=== PATIENT | female | born 1990 | race Caucasian/White ===

== ENCOUNTER → 2018-07-07 11:07 | Outpatient (CLI) | payer OTHER, SELFPAY ==
--- NOTE | 2018-07-07 11:09 | DI.US.S_ITS ---
PROCEDURE: US PELVIC COMPLETE INDICATIONS: Pelvic pain TECHNIQUE: Real-time scanning was performed of the pelvic organs, with image documentation. Additional endovaginal scanning was necessary due to incomplete visualization of the adnexal and endometrial structures by transabdominal scanning. COMPARISON: [facility], US, PELVIC COMPLETE, 09/11/2017, 15:41. FINDINGS: Transabdominal scanning: Limited scanning through the kidneys shows no hydronephrosis. No pathologic free abdominal or pelvic fluid. Endovaginal scanning: Uterus: Uterus is normal in size at 8.3 x 4.5 x 5 cm. the uterus is deviated to the right. The endometrium measures 7 mm in combined thickness. Ovaries: The right ovary measures 2.5 x 3 x 3.3 cm. The left ovary measures 4.4 x 3 x 2.7 cm and demonstrates a dominant follicle that measures up to 2.2 cm, which is considered to be within physiologic limits. The ovaries have a normal sonographic appearance, with normal appearing follicles seen. 4 or 5 follicles are seen within the right ovary while there are 2 follicles seen within the left ovary No adnexal masses are seen. IMPRESSION: Helical percent within normal limits, without an imaging explanation found for the patient's presenting history of pelvic and lower abdominal pain. This patient does not meet ultrasound criteria for polycystic ovaries. Dictated by: Joao Alvarado M.D. on 07/07/2018 at 11:48 Approved by: Joao Alvarado M.D. on 07/07/2018 at 11:56
== END ==
PROVIDERS: Visit Provider Physician Assistant
DX: R10.2 Pelvic and perineal pain (principal)
CPT/HCPCS: 76830; 76856

== ENCOUNTER → 2018-11-05 15:44 | Outpatient (CLI) | payer OTHER, SELFPAY ==
--- NOTE | 2018-11-05 15:46 | DI.US.S_ITS ---
LIMITED ULTRASOUND OF RIGHT BREAST: 11/05/2018 CLINICAL: Focal right breast pain. Palpable right breast lump. No prior exams were available for comparison. Ultrasound of the right breast upper outer quadrant was performed. No abnormalities were seen sonographically in the right breast. There are no discrete cystic or solid masses present to correspond to the palpable mass. IMPRESSION: BENIGN The area of palpable concern should be managed clinically. There is no sonographic evidence of malignancy. This exam was interpreted at Station ID: [id number]. Electronically Signed By: Saranya patterson/pau:11/06/2018 09:10:47 letter sent: Clinical Evaluation Ultrasound BI-RADS: 2 Benign
== END ==
PROVIDERS: Visit Provider Registered Nurse
DX: N63.11 Unspecified lump in the right breast, upper outer quadrant (principal); N64.4 Mastodynia
CPT/HCPCS: 76642

== ENCOUNTER 2018-12-10 14:44 | Emergency (ER) | payer OTHER, SELFPAY ==
[2018-12-10 14:50] VITALS: BP 141/93; PULSE 97; RESP 15; TEMP 36.9; O2SAT 100; BMI 45.4
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
[2018-12-10 16:39] VITALS: BP 130/85; PULSE 89; O2SAT 97
== END 2018-12-10 16:40 | disposition home or self-care (01) ==
PROVIDERS: Emergency Provider Nurse Practitioner Family; PCP Registered Nurse
DX: S00.90XA Unspecified superficial injury of unspecified part of head, initial encounter (principal); S00.83XA Contusion of other part of head, initial encounter
CPT/HCPCS: 70450; 70486; 99282; 99284

== ENCOUNTER 2018-12-22 17:35 | Emergency (ER) | payer OTHER, SELFPAY ==
[2018-12-22 17:53] VITALS: BP 147/94; PULSE 107; RESP 22; TEMP 36.8; O2SAT 100
--- NOTE | 2018-12-22 19:05 | DI.CT.S_ITS ---
PROCEDURE: CT HEAD/BRAIN WO CON INDICATIONS: head injury, ongoing symptoms TECHNIQUE: Noncontrast 4.5 mm thick angled axial sections acquired from the foramen magnum to the vertex, with coronal and sagittal reformats. For radiation dose reduction, the following was used: automated exposure control, adjustment of mA and/or kV according to patient size. COMPARISON: [facility], CT, CT HEAD/BRAIN WO CON, 12/10/2018, 15:48. FINDINGS: Image quality: Excellent. CSF spaces: Basal cisterns are patent. No extra-axial fluid collections. Ventricles are normal in size and shape. Brain: No midline shift. No intracranial masses or hemorrhage. Prater-white matter interface is normal. Skull and face: Calvarium and visualized facial bones are intact, without suspicious lesions. Sinuses: Visualized sinuses and mastoids are clear. IMPRESSION: Unremarkable head CT with no evidence of acute stroke, hemorrhage, or mass. Dictated by: Bertram Alan M.D. on 12/22/2018 at 19:38 Approved by: Bertram Alan M.D. on 12/22/2018 at 19:39
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
== END 2018-12-22 20:01 | disposition home or self-care (01) ==
PROVIDERS: Emergency Provider Emergency Medicine
DX: S06.0X0D Concussion without loss of consciousness, subsequent encounter (principal); R11.0 Nausea; R41.0 Disorientation, unspecified; Y99.0 Civilian activity done for income or pay
CPT/HCPCS: 70450; 99283; 99284